=== PATIENT | male | born 1975 | race Caucasian/White ===

== ENCOUNTER 2017-04-01 17:28 | Observation (INO) ==
[2017-04-01] MEDS ORDERED: ASPIRIN CHEWABLE PO STA (17:46)
[2017-04-01 17:57] LABS: BASOPHILS # (AUTO) 0.1 K/uL (0-0.2); BASOPHILS % (AUTO) 0.7 % (0.0-3.0); EOSINOPHILS # (AUTO) 0.3 K/ul (0.0-0.7); EOSINOPHILS % (AUTO) 2.8 % (0.0-7.0); HEMATOCRIT 41.4 % (42.0-52.0); HEMOGLOBIN 14.6 g/dl (14.0-18.0); IMMATURE GRANULOCYTE % (AUTO) 0.4 % (0.0-5.0); LYMPHOCYTES # (AUTO) 1.8 K/uL (0.60-3.4); LYMPHOCYTES % (AUTO) 19.3 (10.0-50.0); MEAN CORPUSCULAR HEMOGLOBIN 29.1 pg (27.0-31.0); MEAN CORPUSCULAR HGB CONC 35.3 (31.8-35.4); MEAN CORPUSCULAR VOLUME 82.6 fl (80.0-94.0); MONOCYTES # (AUTO) 1.1 K/uL (0.4-2.0); MONOCYTES % (AUTO) 11.6 (0-10); NEUTROPHILS # (AUTO) 5.9 K/ul (2.0-6.9); NEUTROPHILS % (AUTO) 65.2; PLATELET COUNT 191 10^3/uL (140-440); RED BLOOD COUNT 5.01 10^6/ul (4.70-6.10); WHITE BLOOD COUNT 9.07 K/ul (4.2-10.2)
--- NOTE | 2017-04-01 17:59 | ED.PDOC ---
General Stated Complaint: Woke up noon with left sided chest pain. radiating to left arm , not getting better, came for the evaluation. Time Seen by Physician: 17:52 Mode of Arrival: Walk-In Information Source: Patient Nursing and Triage Documentation Reviewed and Agree: Yes <TRACEY KRUGER - Last Filed: 04/01/17 17:52> <MARC HOWARD - Last Filed: 04/01/17 20:32> ED Provider: Dr. MARC HOWARD Chief Complaint: Chest Pain Primary Care Provider: NABEEL ZEE Cardiovascular Complaint Exam - Chest Pain Complaint/Exam Onset: Gradual Symptoms Are: Still present Timing: Constant Initial Severity: Mild Current Severity: Mild Location: Reports: Discrete, Midsternal Pain Radiates: Reports: Left shoulder Character: Reports: Aching, Tightness, Heaviness Aggravating: Reports: None Alleviating: Reports: None Associated Signs and Symptoms: Denies: Diaphoresis, Nausea, Vomiting, Fever, Palpitations, Cough, Hemoptysis, Back pain, Abdominal pain, Dizziness, Short of air, Calf pain, Calf swelling Related Surgical History: Reports: None History of Healthcare-Acquired Pneumonia: Reports: No AMI/ACS Risk Factors: Reports: None TAD Risk Factors: Reports: None Pulmonary Embolism Risk Factors: Reports: None Prior Care for this Complaint: No Recent Stress Test: No Recent Echo/LV Function: No JVD Present: No Subcutaneous Emphysema Present: No Diminshed Breath Sounds: No Reproducible Chest Wall Pain: No Bilateral Pulses Present: No Unequal Pulses Noted: No If Risk Factors for AMI/ACS Consider: EKG, Cardiac Enzymes, Serial Studies, Oxygen, Aspirin Differential Diagnoses: ACS, Stable Angina, Chest Wall Pain <TRACEY KRUGER - Last Filed: 04/01/17 17:52> Review of Systems - Review Of Systems Constitutional: Reports: No symptoms Eyes: Reports: No symptoms Ears, Nose, Mouth, Throat: Reports: No symptoms Respiratory: Reports: No symptoms Cardiac: Reports: Chest pain GI: Reports: No symptoms : Reports: No symptoms Musculoskeletal: Reports: No symptoms Skin: Reports: No symptoms Neurological: Reports: No symptoms Endocrine: Reports: No symptoms Hematologic/Lymphatic: Reports: No symptoms All Other Systems: Reviewed and Negative <TRACEY KRUGER - Last Filed: 04/01/17 17:52> Past Medical History - Past Medical History Previously Healthy: Yes Endocrine: Reports: None Cardiovascular: Reports: None Respiratory: Reports: None Hematological: Reports: None Gastrointestinal: Reports: GERD Genitourinary: Reports: None Neuro/Psych: Reports: None Musculoskeletal: Reports: None Cancer: Reports: None - Surgical History General Surgical History: Reports: None - Family History Family History: Reports: None - Social History Smoking Status: Never smoker Hx Substance Use: No Alcohol Screening: None <TRACEY KRUGER - Last Filed: 04/01/17 17:52> Physical Exam - Physical Exam Appearance: Well-appearing, No pain distress, Well-nourished Eyes: CAMILO, EOMI, Conjunctiva clear ENT: Ears normal, Nose normal, Oropharynx normal Respiratory: Airway patent, Breath sounds clear, Breath sounds equal, Respirations nonlabored Cardiovascular: RRR, Pulses normal, No rub, No murmur GI/: Soft, Nontender, No masses, Bowel sounds normal, No Organomegaly Musculoskeletal: Normal strength, ROM intact, No edema, No calf tenderness Skin: Warm, Dry, Normal color Neurological: Sensation intact, Motor intact, Reflexes intact, Cranial nerves intact, Alert, Oriented Psychiatric: Affect appropriate, Mood appropriate <TRACEY KRUGER Last Filed: 04/01/17 17:52> Re-Evaluation - Re-Evaluation Time of Re-Evaluation: 19:55 Status: Improved Pain Level: gone Appearance: NAD Lungs: Clear <MARC HOWARD - Last Filed: 04/01/17 20:32> Physician Notification - Case Discussed Physician Notified: Dr zee Time of Notification: 19:00 (Ok to admit, Make sure to get stress in the morning ) Physician Notified: Dr. Fernandez Time of Notification: 20:31 (notifed of stress in the morning.) <MARC HOWARD - Last Filed: 04/01/17 20:32> Critical Care Note - Critical Care Note Total Time (mins): 30 <TRACEY KRUGER - Last Filed: 04/01/17 17:52> Course - Course Hematology/Chemistry: 04/01/17 17:50 04/01/17 17:50 <MARC OHWARD - Last Filed: 04/01/17 20:32> - Course Orders, Labs, Meds: Lab Review 04/01/17 04/01/17 04/01/17 17:50 17:50 17:50 WBC 9.07 RBC 5.01 Hgb 14.6 Hct 41.4 L MCV 82.6 MCH 29.1 MCHC 35.3 RDW Coeff of Juan 12.9 Plt Count 191 Immature Gran % (Auto) 0.4 Neut % (Auto) 65.2 Lymph % (Auto) 19.3 [place] % (Auto) 11.6 H Eos % (Auto) 2.8 Baso % (Auto) 0.7 Immature Gran # (Auto) 0.0 Neut # 5.9 Lymph # 1.8 [place] # 1.1 Eos # 0.3 Baso # 0.1 D-Dimer (Manual) 139.45 Sodium 140 Potassium 3.5 Chloride 104 Carbon Dioxide 24 Anion Gap 15.5 BUN 18 Creatinine 1.16 H Estimated GFR (MDRD) 69.00 BUN/Creatinine Ratio 15.51 Glucose 131 H Calcium 9.6 Total Bilirubin 0.32 AST 14 L ALT 22 Alkaline Phosphatase 86 Total Creatine Kinase 104 Troponin I < 0.0100 Total Protein 7.5 Albumin 4.1 Globulin 3.4 Albumin/Globulin Ratio 1.21 Orders Category Date Time Status PLACE PATIENT OBSERVATION .TO [facility] (MONITORED BED ADMISSION 04/01/17 19: 58 Active ) ECHOCARDIOGRAM 2D-M MODE Routine CARDIO 04/02/17 19:00 Ordered EKG-(ED ONLY) Stat CARDIO 04/01/17 17:46 Ordered EKG-(IP & OP ONLY) Routine CARDIO 04/02/17 06:00 Ordered OXYGEN Routine CARDIO 04/01/17 19:58 Ordered STRESS ECHO Routine CARDIO 04/02/17 07:00 Ordered ACTIVITY .Early Mobilization for VTE Prevention CARE 04/01/17 19:59 Active INTAKE & OUTPUT Q8HR CARE 04/01/17 19:58 Active TELEMETRY MONITORING TELE CARE 04/01/17 19:59 Active VITAL SIGNS Q4HR CARE 04/01/17 19:59 Active CARDIAC DIET DIETARY 04/01/17 Breakfast Ordered BASIC METABOLIC PANEL DAILY@0600 LAB 04/02/17 06:00 Ordered BASIC METABOLIC PANEL DAILY@0600 LAB 04/03/17 06:00 Ordered BASIC METABOLIC PANEL DAILY@0600 LAB 04/04/17 06:00 Ordered BASIC METABOLIC PANEL DAILY@0600 LAB 04/05/17 06:00 Ordered BASIC METABOLIC PANEL DAILY@0600 LAB 04/06/17 06:00 Ordered BASIC METABOLIC PANEL DAILY@06 LAB 04/07/17 06:00 Ordered BASIC METABOLIC PANEL DAILY@06 LAB 04/08/17 06:00 Ordered BASIC METABOLIC PANEL DAILY@06 LAB 04/09/17 06:00 Ordered BASIC METABOLIC PANEL DAILY@06 LAB 04/10/17 06:00 Ordered BASIC METABOLIC PANEL DAILY@06 LAB 04/11/17 06:00 Ordered BASIC METABOLIC PANEL DAILY@06 LAB 04/12/17 06:00 Ordered BASIC METABOLIC PANEL DAILY@06 LAB 04/13/17 06:00 Ordered BASIC METABOLIC PANEL DAILY@06 LAB 04/14/17 06:00 Ordered BASIC METABOLIC PANEL DAILY@06 LAB 04/15/17 06:00 Ordered BASIC METABOLIC PANEL DAILY@06 LAB 04/16/17 06:00 Ordered BASIC METABOLIC PANEL DAILY@06 LAB 04/17/17 06:00 Ordered BASIC METABOLIC PANEL DAILY@06 LAB 04/18/17 06:00 Ordered BASIC METABOLIC PANEL DAILY@06 LAB 04/19/17 06:00 Ordered BASIC METABOLIC PANEL DAILY@06 LAB 04/20/17 06:00 Ordered BASIC METABOLIC PANEL DAILY@06 LAB 04/21/17 06:00 Ordered CBC W/ AUTO DIFF DAILY@599 LAB 04/02/17 06:00 Ordered CBC W/ AUTO DIFF DAILY@06 LAB 04/03/17 06:00 Ordered CBC W/ AUTO DIFF DAILY@06 LAB 04/04/17 06:00 Ordered CBC W/ AUTO DIFF DAILY@06 LAB 04/05/17 06:00 Ordered CBC W/ AUTO DIFF DAILY@06 LAB 04/06/17 06:00 Ordered CBC W/ AUTO DIFF DAILY@06 LAB 04/07/17 06:00 Ordered CBC W/ AUTO DIFF DAILY@06 LAB 04/08/17 06:00 Ordered CBC W/ AUTO DIFF DAILY@599 LAB 04/09/17 06:00 Ordered CBC W/ AUTO DIFF DAILY@06 LAB 04/10/17 06:00 Ordered CBC W/ AUTO DIFF DAILY@06 LAB 04/11/17 06:00 Ordered CBC W/ AUTO DIFF DAILY@06 LAB 04/12/17 06:00 Ordered CBC W/ AUTO DIFF DAILY@06 LAB 04/13/17 06:00 Ordered CBC W/ AUTO DIFF DAILY@06 LAB 04/14/17 06:00 Ordered CBC W/ AUTO DIFF DAILY@0600 LAB 04/15/17 06:00 Ordered CBC W/ AUTO DIFF DAILY@0600 LAB 04/16/17 06:00 Ordered CBC W/ AUTO DIFF DAILY@0600 LAB 04/17/17 06:00 Ordered CBC W/ AUTO DIFF DAILY@0600 LAB 04/18/17 06:00 Ordered CBC W/ AUTO DIFF DAILY@0600 LAB 04/19/17 06:00 Ordered CBC W/ AUTO DIFF DAILY@0600 LAB 04/20/17 06:00 Ordered CBC W/ AUTO DIFF DAILY@0600 LAB 04/21/17 06:00 Ordered CBC W/ AUTO DIFF Stat LAB 04/01/17 17:50 Completed COMPREHENSIVE METABOLIC PANEL Stat LAB 04/01/17 17:50 Completed CREATINE KINASE Q8H LAB 04/02/17 02:15 Ordered CREATINE KINASE Q8H LAB 04/02/17 10:15 Ordered CREATINE KINASE Stat LAB 04/01/17 17:50 Completed D-DIMER Stat LAB 04/01/17 17:50 Completed TROPONIN I Q8H LAB 04/02/17 02:15 Ordered TROPONIN I Q8H LAB 04/02/17 10:15 Ordered TROPONIN I Stat LAB 04/01/17 17:50 Completed Aspirin [Aspirin Chewable] MEDS 04/01/17 17:46 Discontinued 324 mg PO ONCE STA Enoxaparin Sodium [Lovenox] MEDS 04/01/17 20:00 Ordered 40 mg SUBCUT DAILY Morphine Sulfate [Morphine 2 mg/ml Syringe] MEDS 04/01/17 18:00 Discontinued 2 mg IVP ONCE STA Morphine Sulfate [Morphine 2 mg/ml Syringe] MEDS 04/01/17 19:58 Ordered 2 mg IVP Q4H PRN Omeprazole Magnesium [Prilosec Otc] MEDS 04/02/17 06:30 Ordered 20 mg PO BIDAC Ondansetron HCl/Pf [Zofran 4 mg/2 ml] MEDS 04/01/17 18:00 Discontinued 4 mg IVP ONCE STA Ondansetron HCl/Pf [Zofran 4 mg/2 ml] MEDS 04/01/17 19:58 Ordered 4 mg IVP Q6H PRN Sodium Chloride 0.9% [Sodium Chloride] 1,000 ml MEDS 04/01/17 20:00 Ordered IV 75 mls/hr Sucralfate [Carafate] MEDS 04/01/17 20:30 Ordered 1 gm PO TIDAC and bedtime RESUSCITATION STATUS Routine OTHERS 04/01/17 19:58 Ordered CHEST, 2 VIEWS PA & LAT Stat RADS 04/01/17 17:46 Taken Medications Generic Name Dose Route Start Last Admin Trade Name Freq PRN Reason Stop Dose Admin Enoxaparin Sodium 40 mg 04/01/17 20:00 Lovenox SUBCUT DAILY NARCISA Sodium Chloride 1,000 mls @ 75 mls/hr 04/01/17 20:00 Sodium Chloride IV .[id number] NARCISA Morphine Sulfate 2 mg 04/01/17 19:58 Morphine 2 Mg/Ml Syringe IVP Q4H PRN Severe Pain Non-Formulary Medication 20 mg 04/02/17 06:30 Omeprazole Magnesium [Prilosec Otc] PO BIDAC NARCISA Ondansetron HCl 4 mg 04/01/17 19:58 Zofran 4 Mg/2 Ml IVP Q6H PRN Nausea / Vomiting Sucralfate 1 gm 04/01/17 20:30 Carafate PO TIDAC and bedtime NARCISA Discontinued Medications Generic Name Dose Route Start Last Admin Trade Name Freq PRN Reason Stop Dose Admin Aspirin 324 mg 04/01/17 17:46 04/01/17 17:55 Aspirin Chewable PO 04/01/17 17:47 324 mg ONCE STA Administration Morphine Sulfate 2 mg 04/01/17 18:00 Morphine 2 Mg/Ml Syringe IVP 04/01/17 18:01 ONCE STA Ondansetron HCl 4 mg 04/01/17 18:00 Zofran 4 Mg/2 Ml IVP 04/01/17 18:01 ONCE STA Vital Signs: Temp Pulse Resp BP Pulse Ox 04/01/17 17:30 99.8 F H 79 20 150/91 H 99 BERNARDA Risk Score: Risk Score Odds of by 30D 0 0.1 (0.1-0.2) 1 0.3 (0.2-0.3) 2 0.4 (0.3-0.5) 3 0.7 (0.6-0.9) 4 1.2 (1.0-1.5) 5 2.2 (1.9-2.6) 6 3.0 (2.5-3.6) 7 4.8 (3.8-6.1) Departure <TRACEY KRUGER - Last Filed: 04/01/17 17:52> - Departure Time of Disposition: 19:54 Pt referred to PMD for follow-up: Yes <MARC HOWARD - Last Filed: 04/01/17 20:32> - Departure Disposition: PLACED OBSERVATION Discharge Problem: Chest pain Condition: Fair Allergies/Adverse Reactions: Allergies No Known Allergies Allergy (Unverified 08/07/14 11:26)
[2017-04-01] MEDS ORDERED: ZOFRAN 4 MG/2 ML IVP STA (18:00)
[2017-04-01] MEDS ORDERED: MORPHINE 2 MG/ML SYRINGE IVP STA (18:00)
[2017-04-01 18:22] LABS: ALANINE AMINOTRANSFERASE 22 U/L (12-78); ALBUMIN 4.1 g/dL (3.4-5.0); ALBUMIN/GLOBULIN RATIO 1.21; ALKALINE PHOSPHATASE 86 U/L (50-136); ANION GAP 15.5; ASPARTATE AMINO TRANSFERASE 14 U/L (15-37); BILIRUBIN,TOTAL 0.32 mg/dL (0.00-1.20); BLOOD UREA NITROGEN 18 mg/dL (7-18); BUN/CREATININE RATIO 15.51; CALCIUM 9.6 mg/dL (8.2-10.2); CARBON DIOXIDE 24 mmol/L (21-32); CHLORIDE 104 mmol/L (98-107); CREATINE KINASE 104 U/L; CREATININE 1.16 mg/dL (0.60-1.10); GLUCOSE 131 mg/dL (70-100); POTASSIUM 3.5 mmol/L (3.5-5.1); SODIUM 140 mmol/L (136-145); TOTAL PROTEIN 7.5 g/dL (6.4-8.2)
[2017-04-01] MEDS ORDERED: MORPHINE 2 MG/ML SYRINGE IVP PRN (19:58)
[2017-04-01] MEDS ORDERED: ZOFRAN 4 MG/2 ML IVP PRN (19:58)
[2017-04-01] MEDS ORDERED: LOVENOX SUBCUT SCH (20:00)
[2017-04-01] MEDS ORDERED: SODIUM CHLORIDE 1,000 ML IV SCH (20:00)
[2017-04-01 22:17] VITALS: BMI 26.6
[2017-04-02 02:02] LABS: BASOPHILS % (AUTO) 0.4 % (0.0-3.0); EOSINOPHILS # (AUTO) 0.2 K/ul (0.0-0.7); EOSINOPHILS % (AUTO) 1.5 % (0.0-7.0); HEMATOCRIT 38.2 % (42.0-52.0); HEMOGLOBIN 13.8 g/dl (14.0-18.0); IMMATURE GRANULOCYTE % (AUTO) 0.3 % (0.0-5.0); LYMPHOCYTES # (AUTO) 1.3 K/uL (0.60-3.4); LYMPHOCYTES % (AUTO) 12.2 (10.0-50.0); MEAN CORPUSCULAR HEMOGLOBIN 29.5 pg (27.0-31.0); MEAN CORPUSCULAR HGB CONC 36.1 (31.8-35.4); MEAN CORPUSCULAR VOLUME 81.6 fl (80.0-94.0); MONOCYTES # (AUTO) 1.4 K/uL (0.4-2.0); MONOCYTES % (AUTO) 13.1 (0-10); NEUTROPHILS # (AUTO) 7.6 K/ul (2.0-6.9); NEUTROPHILS % (AUTO) 72.5; PLATELET COUNT 156 10^3/uL (140-440); RED BLOOD COUNT 4.68 10^6/ul (4.70-6.10); WHITE BLOOD COUNT 10.52 K/ul (4.2-10.2)
[2017-04-02 02:19] LABS: ANION GAP 12.8; BUN/CREATININE RATIO 12.61; CALCIUM 9.1 mg/dL (8.2-10.2); CREATININE 1.11 mg/dL (0.60-1.10); POTASSIUM 3.8 mmol/L (3.5-5.1)
[2017-04-02 02:27] LABS: TROPONIN I 0.04 ng/ml (0.0000-0.4000)
[2017-04-02 02:34] LABS: CHOL/HDL RATIO 5.6 (4.5-6.4)
[2017-04-02] MEDS ORDERED: NON-FORMULARY MEDICATION (Omeprazole Magnesium [Prilosec Otc] 20 MG) PO SCH ×22 (06:30)
[2017-04-02] MEDS ORDERED: PROTONIX IV IVP SCH (06:30)
--- NOTE | 2017-04-02 06:39 | DI ---
EXAM: PA and lateral views of the chest HISTORY: Chest pain COMPARISON: None FINDINGS: The cardiomediastinal silhouette is normal. There is no pneumothorax or pleural effusion. There is no consolidation, nodule or mass. The osseous structures are unremarkable. IMPRESSION: No acute cardiopulmonary process
[2017-04-02] MEDS ORDERED: ASPIRIN EC PO SCH (08:00)
[2017-04-02] MEDS: CARAFATE PO SCH ×2 (09:01→11:50)
[2017-04-02 10:39] LABS: TROPONIN I 0.03 ng/ml (0.0000-0.4000)
[2017-04-02] MEDS ORDERED: CARAFATE PO SCH (11:00)
[2017-04-02 11:09] VITALS: BP 123/75; TEMP 98.2
[2017-04-02] MEDS ORDERED: LOVENOX SUBCUT SCH (21:00)
--- NOTE | 2017-04-03 07:58 | STRESSECHO ---
Date of Test: 04/02/17 Reason for Exam: CHEST PAIN Ordering Physician: NABEEL ZEE Current Medications: CARAFATE, PRILOSEC Resting EKG: SINUS RHYTHM/ NO ACUTE CHANGES Target Heart Rate: 151 STAGE MPH/GRADE HEART RATE BPM BLOOD PRESSURE mmhg RHYTHM S-T SEGMENT +/- UP DOWN SYMPTOMS,COMMENTS At Rest 82 118/68 SR X NONE 1 1.7/10% 120 130/80 SR X NONE 2 2.5/12% 142 148/70 SR X NONE 3 3.4/14% 4 4.2/16% 5 5.0/18% Immediately after 154 SR X FATIGUE Durations of Exercise: 7:08 Maximum Heart Rate Reached: 154 Reason for Termination: FATIGUE INTERPRETATION: 98% OXYGEN SATURATION WITH EXERCISE ON ROOM AIR 1. NO EVIDENCE OF ISCHEMIA BY ST-T WAVE 2. NO CHEST PAIN OR CHEST DISCOMFORT 3. BLOOD PRESSURE RESPONSE: NORMAL 4. NO ARRHYTHMIA BY ECHO--NORMAL LEFT VENTRICULAR CONTRACTILITY---RESTING AND POST EXERCISE ECHO--2 "D" "M" MODE: LEFT VENTRICULAR HYPERTROPHY, NORMAL VALVES, NORMAL LEFT VENTRICULAR EJECTION FRACTION MTDD
--- NOTE | 2017-04-03 08:01 | ECHOSTRESS ---
Date of Exam: 04/02/17 Ordering Physician: NABEEL ZEE Reason for Echo: CHEST PAIN, STRESS TEST--NO ISCHEMIA M-Mode Normal Adult Results LV Dimensions Normal Adult Results AoV Opening excursions >1.6 LVEDD-base- 3.5-5.8 Ao root dimensions 2.0-3.7 LVESD-base- 3.1-4.6 L. Atrium dimensions 1.9-3.8 Post. Wall thickness 0.8-1.1 IV septum (thickness) 0.7-1.2 Post. Wall excursion 0.72-1.3 Septal motion Systolic motion R. Ventricular cavity 1.5-2.0 LVEF 60% Paradoxical septal wall motion 2-D: NORMAL LEFT VENTRICULAR CONTRACTILITY--RESTING AND POST EXERCISE M-MODE: MV: AV: TV: PV: CHAMBER SIZE: WALL MOTION: NORMAL LEFT VENTRICULAR CONTRACTILITY--RESTING AND POST EXERCISE PERICARDIUM: INTERPRETATION: 1. NORMAL LEFT VENTRICULAR CONTRACTILITY--RESTING AND POST EXERCISE MTDD
--- NOTE | 2017-04-03 08:40 | ECHO2D ---
Date of Exam: 04/02/17 Ordering Physician: NABEEL ZEE Room #: 119 Reason for Echo: CHEST PAIN M-Mode Normal Adult Results LV Dimensions Normal Adult Results AoV Opening excursions >1.6 >1.6 LVEDD-base- 3.5-5.8 4.4 Ao root dimensions 2.0-3.7 3.2 LVESD-base- 3.1-4.6 L. Atrium dimensions 1.9-3.8 3.7 Post. Wall thickness 0.8-1.1 1.3 IV septum (thickness) 0.7-1.2 1.3 Post. Wall excursion 0.72-1.3 NORMAL Septal motion NORMAL Systolic motion R. Ventricular cavity 1.5-2.0 NORMAL LVEF 60% 55% Paradoxical septal wall motion NORMAL 2-D : 2-D M Mode Echocardiogram was performed using apical four chamber and left parasternal long and short axis views. Mitral, tricuspid and aortic valves appear to be normal. Contractility of the left ventricle seems to be normal, so is the cavity size. Left atrial cavity size and aortic root appear to be normal. There is no pericardial effusion. There is no thrombus noted in the left ventricular or left aortic cavity. No mitral valve prolapse noted. M-MODE: MV: NORMAL AV: NORMAL TV: NORMAL PV: CHAMBER SIZE: NORMAL WALL MOTION: NORMAL PERICARDIUM: NORMAL INTERPRETATION: 1. BORDERLINE LEFT VENTRICULAR HYPERTROPHY 2. NORMAL VALVES 3. NORMAL LEFT VENTRICULAR HYPERTROPHY MTDD
--- NOTE | 2017-04-06 14:58 | SSS ---
SOURCE: The source of this information is prior knowledge of the patient, review of his office records, his current chart as well as discussion with he, his girlfriend or and ER personnel/nursing staff; all considered reliable. PATIENT PROFILE: This is a 41-year-old male resident of the [facility] area. He was cooperative. CHIEF COMPLAINT: "I was having chest pain." BRIEF HISTORY OF PRESENT ILLNESS: He has known cardiac disease. He does have gastroesophageal reflux disease. He has been working in his attic; admittedly bending his head forward and using his arms. The day of admission he had a sudden onset of pain in the left shoulder, anterior chest area. It was sharp at times but mostly a dull persistent discomfort and a pressure sensation across his chest. There was no associated shortness of breath. He did get somewhat anxious. There was no nausea , vomiting, or palpitations. When it persisted he came to the ED where his acute cardiac evaluation was unremarkable. He has been using for the last two weeks Carafate and Prilosec as he has been having more heartburn. He has a past history of panic anxiety and his girlfriend/ just had a miscarriage in the last couple of weeks causing moderate amount of stress. With this background we elected to admit for further testing. PAST HISTORY: CHILDHOOD: Unremarkable. ALLERGIES/INTOLERANCE: NONE CURRENT MEDICATIONS: Carafate and Omeprazole 20 mg once a day HOSPITALIZATIONS/SURGERIES/PROCEDURES: This is his first hospitalization. There have been no surgeries. FAMILY HISTORY: Heart disease in a maternal grandfather, diabetes in father and mother. Stroke in father. HABITS: He has never smoked, been exposed to secondary smoke, chewed tobacco, used alcohol or drugs. SOCIAL HISTORY: Lives with /girlfriend, works in the maintenance department here at [employer], has no children. REVIEW OF SYSTEMS: GENERAL: His weight has been steady. INTEGUMENT: There has been no rash, particularly about the chest. HEENT: No sinus congestion, nasal drainage, sore throat. He has not been using any [id number] decongestants. NECK: No pain or mass. CHEST: No cough, wheeze, hemoptysis. CARDIOVASCULAR: No palpitations, exertional chest pain, leg edema. He has had palpitations with his anxiety in the past. Holter negative. GI: Occasional, more recent heartburn with no dysphagia, melena, hematochezia, rectal bleeding. : Denies dysuria, frequency. MUSCULOSKELETAL: Denies upper extremity or lower extremity weakness. No joints have been red or swollen and particularly sore to use. NEUROLOGIC: No weakness of extremities, numbness of extremities PSYCHIATRIC: Admits to the increased anxiety; causing mild insomnia, nonsuicidal in his thought processes. PHYSICAL EXAMINATION: VITALS: Temperature 98.7, pulse 76, BP 136/84, respiratory rate 23, 02 99 on room air. Height 5'9", weight 180 lb. GENERAL: Appropriate for age, well-kept white male in no obvious distress. INTEGUMENT: Male pattern baldness, male escutcheon. No ankle edema. HEENT: Eyegrounds are pink. Nonicteric sclerae. Mucous membranes moist. Pupils equal, round, extraocular movements intact. NECK: No palpable mass or tenderness. No visible lymphadenopathy, thyromegaly. CHEST: Lungs are clear. Nontender. CARDIOVASCULAR: S1, S2 regular with no murmurs or carotid bruits. Distal pulse full and intact. GI: Soft. No rebound, guarding, mass or tenderness. RECTAL/: Deferred. MUSCULOSKELETAL: Tool Drawing Checker are equal. Four quadrant movements of all joints including the left shoulder. NEUROLOGIC: Tool Drawing Checker are equal. Light touch sensation in upper and lower extremities, intact. Facial symmetry. PSYCHIATRIC; Oriented times three. Pleasant, personable with intact short and custodial memory obvious. ASSESSMENT/PROBLEM LIST: 0. 41-year-old white male. 1. Allergies/intolerances - none. 2. Procedural history - none. 3. Family history - see above 4. Anxiety - chronic. 5. Palpitations - benign to date 6. Brief history of rectal bleeding - resolved years ago 7. Gastroesophageal reflux REASON FOR ADMISSION: # CHEST PAIN HOSPITAL COURSE: D. dimer is 139. Chest x-ray normal. EKGs were non acute. White count 10.52, hemoglobin 13.8; chemistry unremarkable. Cholesterol 199, triglyceride 156. LDL 88, VHDL 40 and HDL 28. He had no further chest pain. We had given him Protonix IV. He had a stress echo by Dr. Fernandez that was negative for ischemia. The patient was anxious to go home. DISCHARGE ASSESSMENT/PROBLEM LIST: (CHANGED FROM ADMISSION) # Chest pain - appears noncardiac # Gastroesophageal reflux # Anxiety - chronic and maybe an acute component PLAN: 1. Discharge 2. Medications: a) Same as admit b) Encouraged him to use Carafate and Prilosec around the clock for at least two weeks 3. Activity a) Gradually increase as able. b) He was agreeable to return to work tomorrow 4. Followup a) At least once a year in the office. 5. Certainly in the next few days if he has recurrence of anything such as chest pain/anxiety we want to hear from him at the office. PROGNOSIS: Good. CONDITION: Stable, improved. KILLIAN
--- NOTE | 2017-05-25 09:50 | CONS ---
DATE OF CONSULTATION: 04/02/17 REASON FOR CONSULTATION: Chest pain HISTORY OF PRESENT ILLNESS: 41 year old white male hospitalized with chest pain and both shoulder pain started nearly 24 hours ago. The shoulder pain is what is like an ache constant occupying the middle of the chest. The patient also says that he has reflux type of symptoms sometimes he feels the same thing that he has felt expect for both shoulder ache. The patient doesn't have any exertional chest discomfort. REVIEW OF SYSTEMS: CONSTITUTIONAL: No night sweats. No fatigue, malaise, lethargy. No fever or chills. HEENT: Eyes: No visual changes. No eye pain. No eye discharge. ENT: No sinus drainage. No epistaxis. No sinus pain. No sore throat. No odynophagia. No ear pain. No congestion. RESPIRATORY: No cough, no congestion. No hemoptysis. No shortness of breath. CARDIOVASCULAR: No angina symptoms. No CHF symptoms. Chest pain center of the chest upper part along with both shoulder pain unrelated to exertion. No sweating. Nonexertional. No shortness of breath.. No palpitations. No orthopnea. No PND. GASTROINTESTINAL: No abdominal pain. No nausea or vomiting. No diarrhea or constipation. No hematemesis. No hematochezia. Gastroesophageal reflux disease type of symptoms. GENITOURINARY: No urgency. No frequency. No dysuria. No hematuria. No obstructive symptoms. No discharge. No pain. No significant abnormal bleeding. MUSCULOSKELETAL: No musculoskeletal pain. No joint swelling. NEUROLOGICAL: No headache. No neck pain. No syncope. No seizures. No dizziness. PSYCHIATRIC: Not anxious. No depression. No suicidal thoughts. No homicidal thoughts. SKIN: No rash. No lesions. No wounds. ENDOCRINE: No unexplained weight loss. No weight gain. HEMATOLOGIC/LYMPHATIC: No anemia. No purpura. No petechiae. No prolonged or excessive bleeding. No palpable lymph nodes. MEDICATIONS: Omeprazole Sucralfate ALLERGIES: None PAST MEDICAL HISTORY: PAST SURGICAL HISTORY: SOCIAL/PERSONAL/FAMILY HISTORY: The patient is . Non-smoker. No alcohol abuse. Lives with the . The patient has no family history of heart disease. His mother has irregular heart beats. PHYSICAL EXAMINATION: GENERAL: The patient is oriented to time, place and person. VITAL SIGNS: Temperature 97, pulse 84, respiratory rate 15, blood pressure 128/ 75 and pulse ox 98%. HEENT: Head normocephalic, atraumatic. Eyes: Extraocular muscles are intact. Pupils are equal, round and reactive to light and accommodation. Ears: No lesions. Nose appeared normal. Throat: No exudate or erythema. NECK: Supple. No JVP, no carotid bruit. No lymphadenopathy or thyromegaly. LUNGS: Clear to auscultation. Percussion note normal. Chest symmetrical. HEART: S1, S2, no S3. No murmurs. No cyanosis or clubbing. No ascites. Pulses: Dorsalis pedis and posterior tibial pulses +2 both sides. ABDOMEN: Soft. Nontender. Bowel sounds active. No CVA tenderness. No mass felt. EXTREMITIES: No edema. Full range of motion of all extremities, equal. NEUROLOGIC: No focal deficit. Cranial nerves II through XII are grossly intact. No headache, no double vision or headache. SKIN: Not dry. Intact. Turgor - normal. LYMPHATIC: No palpable lymph nodes/no lymphedema. MUSCULOSKELETAL: Normal joints with no swelling. Muscle tone is normal. LABS: EKG sinus rhythm, no acute changes. CK markers are negative. Telemetry sinus rhythm, no acute changes. Hgb 13.8, hct 38, WBC 10,500 normal differential, creatinine 1.1, BUN 14, potassium 3.8 ASSESSMENT: 1. Chest pain seems to be noncardiac 2. BMI 26 acceptable RECOMMENDATIONS: 1. Echo and stress echo. The patient's echo showed borderline LVH. Stress echo showed normal exercise tolerance with mets of 10.1 with no evidence of ischemia by ST-T wave, patient did not have chest pain. Blood pressure response was appropriate. 2. Coronary artery disease risk factors discussed. 3. Angina and coronary insufficiency with symptoms discussed The patient's condition is stable. Thanks for referral. KILLIAN
--- NOTE | 2017-05-25 11:42 | CONS ---
The patient was seen Consultation 04/02/17: Level 5 The patient was under Observation. Echo and Stress echo was done on the same day. MARJD
== END 2017-04-02 13:10 | disposition home or self-care (01) ==
LOC: ED 17:28 → MEDSURG B 20:27
PROVIDERS: ADMIT Family Medicine; ATTEND Family Medicine
DX: R07.89 Other chest pain (principal); M25.512 Pain in left shoulder; K21.9 Gastro-esophageal reflux disease without esophagitis; F41.9 Anxiety disorder, unspecified
CPT/HCPCS: 36415; 80048; 80053; 80061; 82550; 84484; 85025; 85379; 93005; 93010; 96360; 96361; 96372; 96374; 99245; 99284